=== PATIENT | female | born 1960 | race Caucasian/White ===

== ENCOUNTER 2020-02-07 15:37 | Inpatient (IN) | payer OTHER ==
[~2020-02-07] VITALS: Ht 162.6 cm; Wt 83.0 kg
[2020-02-07 15:56] VITALS: Ht 162.6 cm; Wt 83.0 kg
[2020-02-07 16:40] LABS: BASOPHIL % 0 % (0-2); PLATELET COUNT 216 x10^3mcL (130-400); RED CELL DISTRIBUTION WIDTH 14.7 % (11.5-14.5)
[2020-02-07 16:50] LABS: microscopic required? YES; urine erythrocyte 1+ (NEGATIVE)
[2020-02-07 16:51] LABS: CALCIUM 9.9 mg/dL (8.5-10.1); CARBON DIOXIDE 19.1 mmol/L (21-32); CHLORIDE SERUM 100 mmol/L (98-107); CREATININE SERUM 1.9 mg/dL (0.6-1.0); GFR1 29 mL/min; GLUCOSE SERUM 277 mg/dL (74-106); POTASSIUM SERUM 5.1 mmol/L (3.5-5.1); SODIUM SERUM 133 mmol/L (136-145)
[2020-02-07 17:02] LABS: ALKALINE PHOSPHATASE 164 U/L (46-116); ALT/SGPT 18 U/L (14-59); AST/SGOT 15 U/L (15-37); BILIRUBIN TOTAL 0.4 mg/dL (0.20-1.00); TOTAL PROTEIN, SERUM 7.3 g/dL (6.4-8.2)
[2020-02-07 17:03] LABS: T3 TOTAL 0.63 ng/mL
[2020-02-07 17:07] LABS: ALBUMIN 2.8 g/dL (3.4-5.0)
[2020-02-07 17:28] LABS: ERYTHROCYTE SED RATE 113 mm/hr (0-30)
[2020-02-07 17:37] LABS: CK-MB < 0.5 ng/mL (0-3.6); CREATINE KINASE 21 U/L (26-192)
[2020-02-07 17:59] LABS: FREE T4 0.99 ng/dL (0.76-1.46); FREE THYROXINE INDEX 2.1 ug/dL (1.4-4.5); T4(THYROXINE) 5.6 ug/dL (4.7-13.3)
[2020-02-07] MEDS ORDERED: PROCRIT2000 U/ML (18:33)
[2020-02-07] MEDS ORDERED: CELLCEPT250 MG PO (18:33)
[2020-02-07] MEDS ORDERED: INSULIN SYRING1 EA29 (18:34)
[2020-02-07] MEDS ORDERED: PEPCID AC20 M2 PO (18:34)
[2020-02-07] MEDS ORDERED: CLONIDINE HCL0.1 M1 (18:34)
[2020-02-07] MEDS ORDERED: LISINOPRIL2.5 MG (18:34)
[2020-02-07] MEDS ORDERED: VALCYTE450 MG PO (18:36)
[2020-02-07] MEDS ORDERED: PREDNISONE10 MG PO (18:36)
[2020-02-07] MEDS ORDERED: PRI20 (18:37)
[2020-02-07] MEDS ORDERED: [UNRECOGNIZED DRUG - CODE] PO (18:39)
[2020-02-07] MEDS ORDERED: MAGNESIUM400 M1 PO (18:40)
[2020-02-07] MEDS ORDERED: BUSPIRONE HCL10 MG PO (18:40)
[2020-02-07 20:48] LABS: CHOLESTEROL 227 mg/dL (<200); CHOLESTEROL/HDL RATIO 7.1; HDL CHOLESTEROL 32 mg/dL (40-60); TRIGLYCERIDES 534 mg/dL (<150)
[2020-02-07 20:57] LABS: AMPHETAMINE QUAL UR NONE DETECTED (See below)
[2020-02-07 22:22] VITALS: BP 125/39
[2020-02-08 06:44] VITALS: BP 144/52
[2020-02-08 07:33] LABS: CALCIUM 9.2 mg/dL (8.5-10.1); CARBON DIOXIDE 19.5 mmol/L (21-32); CREATININE SERUM 1.8 mg/dL (0.6-1.0); MAGNESIUM 1.8 mg/dL (1.8-2.4); PHOSPHOROUS 3.4 mg/dL (2.5-4.9); POTASSIUM SERUM 4.5 mmol/L (3.5-5.1)
[2020-02-08 07:35] LABS: PLATELET COUNT 178 x10^3mcL (130-400)
[2020-02-08 08:30] VITALS: BP 162/64
[2020-02-08 09:56] VITALS: BP 162/64
[2020-02-08] MEDS ORDERED: PRO PO (10:44)
[2020-02-08] MEDS ORDERED: [UNRECOGNIZED DRUG - CODE] PO (11:15)
[2020-02-08] MEDS ORDERED: BACTRIM1 TAB (11:20)
[2020-02-08] MEDS ORDERED: SOD650 PO (11:22)
[2020-02-08] MEDS ORDERED: LOPRESSOR50 M1 PO (11:26)
[2020-02-08] MEDS ORDERED: PROCARDIA XL30 MG PO (11:30)
[2020-02-08 12:21] LABS: MONOCYTE 6 % (0-7)
[2020-02-08 12:22] LABS: rbc morphology (normal/abnorm) NORMAL (NORMAL)
[2020-02-08 12:26] LABS: BAND NEUTROPHIL 4 % (0-10); SEGMENTED NEUTROPHILS 86 % (37-75)
== END 2020-02-08 18:12 | disposition left against medical advice (07) | DRG 871 ==
LOC: ED 15:37 → DU 19:54
PROVIDERS: Specialist; ADMIT Internal Medicine
DX: A41.9 Sepsis, unspecified organism (principal); E43 Unspecified severe protein-calorie malnutrition; N17.0 Acute kidney failure with tubular necrosis; N39.0 Urinary tract infection, site not specified; E87.1 Hypo-osmolality and hyponatremia; Z94.0 Kidney transplant status; R65.20 Severe sepsis without septic shock; E86.0 Dehydration; I10 Essential (primary) hypertension; D63.8 Anemia in other chronic diseases classified elsewhere; Z03.818 Encounter for observation for suspected exposure to other biological agents ruled out; Z79.52 Long term (current) use of systemic steroids
CPT/HCPCS: 36600; 83880; 84439; 87804; G0378; J0360; J0696; J2185; J3370; J7030; J7060; J7507; J7517; Q0092; U0002